=== PATIENT | female | born 1985 | race Caucasian/White ===

== ENCOUNTER 2017-04-21 13:43 | Inpatient (IN) | payer BC ==
[2017-04-21] VITALS (18 sets, daily range): BP systolic 97–132; BP diastolic 56–86
[~2017-04-21] VITALS: Ht 170.2 cm; Wt 64.9 kg
[2017-04-21 15:03] LABS: EOSINOPHIL (%) 0.3 % (0-5); IMMATURE GRANULOCYTE COUNT 0.1 K/uL; INSTRUMENT ABS NEUTROPHIL CT 7.5 K/uL; LYMPHOCYTE COUNT 3.2 K/uL (1.0-2.8); MCH 31.7 PG (29.0-34.0); MCHC 35.4 G/DL (30.0-36.0); MCV 89.6 FL (83-99); MEAN PLAT.VOLUME 11.6 uM^3 (9.5-12.4); MONOCYTE (%) 5.5 % (3-12); MONOCYTE COUNT 0.6 K/uL (0-0.8); NEUTROPHIL (%) 65.3 % (45-76); NEUTROPHIL COUNT 7.5 K/uL (1.8-6.4); PLATELET COUNT 165 K/uL (156-360); RBC DIS.WIDTH-CV 12.8 % (11.8-14.6); RBC DIS.WIDTH-SD 41.6 % (39-53); RED BLOOD COUNT 4.13 M/uL (3.80-5.20); WHITE BLOOD COUNT 11.5 K/uL (4.1-10.2)
[2017-04-21] MEDS ORDERED: PRENATAL TABLE1 EAC3 PO (15:17)
[2017-04-21] MEDS ORDERED: VALTREX50 MG/ML PO (15:17)
[2017-04-21] MEDS ORDERED: IBUPROFEN800 MG PO (21:18)
[2017-04-22 00:34] VITALS: BP 106/59
[2017-04-22 07:16] VITALS: BP 98/63
[2017-04-22 15:08] VITALS: BP 103/75
[2017-04-22 23:22] VITALS: BP 86/48
[2017-04-23 07:08] VITALS: BP 100/68
== END 2017-04-23 13:20 | disposition home or self-care (01) | DRG 775 ==
LOC: LDRP-OP 13:43 → 2WEST 13:44 → LDRP-OP 05-31 11:37
PROVIDERS: Nurse Practitioner
PROC: 10E0XZZ Delivery of Products of Conception, External Approach (ICD-10-PCS; principal; 2017-04-21)
PROC: 10907ZC Drainage of Amniotic Fluid, Therapeutic from Products of Conception, Via Natural or Artificial Opening (ICD-10-PCS; 2017-04-21)
PROC: 3E0S3BZ Introduction of Anesthetic Agent into Epidural Space, Percutaneous Approach (ICD-10-PCS; 2017-04-21)
DX: O99.824 Streptococcus B carrier state complicating childbirth (principal); O43.193 Other malformation of placenta, third trimester; Z37.0 Single live birth; O99.354 Diseases of the nervous system complicating childbirth; K58.9 Irritable bowel syndrome, unspecified; Z3A.38 38 weeks gestation of pregnancy; G43.909 Migraine, unspecified, not intractable, without status migrainosus; O63.0 Prolonged first stage (of labor)
CPT/HCPCS: 85025; C1755; J2540; J3010; J7120